=== PATIENT | male | born 1985 | race Caucasian/White ===

== ENCOUNTER 2017-01-27 07:33 | Emergency (ER) | payer SELFPAY ==
[~2017-01-27] VITALS: Ht 167.6 cm; Wt 65.0 kg
[2017-01-27 07:34] VITALS: BP 147/72; PULSE 82; RESP 18; TEMP 97.7; O2SAT 100
[2017-01-27] MEDS ORDERED: ADDE30TA PO (07:48)
[2017-01-27 07:50] VITALS: RESP 16; O2SAT 100
[2017-01-27] MEDS ORDERED: SODIUM CHLOR 0.9% 1000 ML INJ 1,000 ML IV SCH (07:55)
--- NOTE | 2017-01-27 07:58 | PD ---
HPI Chief Complaint: Abdominal Pain Time Seen by Provider: 07:55 Travel History International Travel<30 days: No Contact w/Intl Traveler<30days: No Traveled to known affect area: No History of Present Illness HPI 32-year-old male with history of kidney stones, presents to the ER today with what he states is a 20 out of 10 pain in the left flank radiating down into the left lower abdomen and testicle area. He has been nauseous and vomited. He states it feels like his kidney stones. He has had dysuria and blood in the urine. He denies any fevers, diarrhea, or any other symptoms. He does not know any exacerbating alleviating factors. Modifying Factors: None Associated Signs & Symptoms: Left flank pain with radiation down to the left testicle Risk Factors: Kidney stone history PFSH Past Medical History Kidney Stones: Yes Past Surgical History Surgical History: No Previous Surgery Social History Alcohol Use: Yes Tobacco Use: Yes (/2 ppd) Substance Use: No Allergies-Medications (Allergen,Severity, Reaction): Coded Allergies: penicillin G (Verified Allergy, Severe, Hives, 01/27/17) Reported Meds & Prescriptions Reported Meds & Active Scripts Active Lortab (Hydrocodone-Acetaminophen) 5-325 Mg Tab 1-2 Tab PO Q6H PRN Motrin Ib (Ibuprofen) 200 Mg Tablet 600 Mg PO QID PRN Reported Adderall (Amphetamine-Dextroamphetamine) 30 Mg Tab 30 Mg PO BID Avoid late evening doses. Space doses at least 4 to 6 hours if more than once/day dosing. Review of Systems Except as stated in HPI: all other systems reviewed are Neg Physical Exam Narrative GENERAL: Well-developed young white male patient currently in moderate distress. Awake and oriented 3. SKIN: Focused skin assessment warm/dry. HEAD: Atraumatic. Normocephalic. EYES: Pupils equal and round. No scleral icterus. No injection or drainage. ENT: No nasal bleeding or discharge. Mucous membranes pink and moist. NECK: Trachea midline. No JVD. CARDIOVASCULAR: Regular rate and rhythm. No murmur appreciated. RESPIRATORY: No accessory muscle use. Clear to auscultation. Breath sounds equal bilaterally. GASTROINTESTINAL: Abdomen soft, non-tender, nondistended. Hepatic and splenic margins not palpable. BACK: No CVA tenderness. No rash. No point tenderness on palpation of the spine. GENITOURINARY: Patient deferred. MUSCULOSKELETAL: No obvious deformities. No clubbing. No cyanosis. No edema. NEUROLOGICAL: Awake and alert. No obvious cranial nerve deficits. Motor grossly within normal limits. Normal speech. PSYCHIATRIC: Appropriate mood and affect; insight and judgment normal. Data Data Last Documented VS Vital Signs Date Time Temp Pulse Resp B/P (MAP) Pulse Ox O2 Delivery O2 Flow Rate FiO2 01/27/17 07:50 16 100 Room Air 01/27/17 07:34 97.7 82 Orders Orders Complete Blood Count With Diff (01/27/17 07:55) Comprehensive Metabolic Panel (01/27/17 07:55) Lipase (01/27/17 07:55) Urinalysis - C+S If Indicated (01/27/17 07:55) Ct Abd/Pel W/O Iv Contrast (01/27/17 07:55) Iv Access Insert/Monitor (01/27/17 07:55) Ecg Monitoring (01/27/17 07:55) Oximetry (01/27/17 07:55) Ondansetron Inj (Zofran Inj) (01/27/17 08:00) Sodium Chlor 0.9% 1000 Ml Inj (Ns 1000 M (01/27/17 07:55) Sodium Chloride 0.9% Flush (Ns Flush) (01/27/17 08:00) Ketorolac Inj (Toradol Inj) (01/27/17 08:00) Labs Laboratory Tests Test 01/27/17 07:52 01/27/17 09:27 White Blood Count 17.6 TH/MM3 Red Blood Count 5.12 MIL/MM3 Hemoglobin 15.9 GM/DL Hematocrit 47.7 % Mean Corpuscular Volume 93.1 FL Mean Corpuscular Hemoglobin 31.1 PG Mean Corpuscular Hemoglobin Concent 33.4 % Red Cell Distribution Width 13.6 % Platelet Count 252 TH/MM3 Mean Platelet Volume 9.0 FL Neutrophils (%) (Auto) 85.2 % Lymphocytes (%) (Auto) 7.2 % Monocytes (%) (Auto) 7.1 % Eosinophils (%) (Auto) 0.1 % Basophils (%) (Auto) 0.4 % Neutrophils # (Auto) 15.0 TH/MM3 Lymphocytes # (Auto) 1.3 TH/MM3 Monocytes # (Auto) 1.2 TH/MM3 Eosinophils # (Auto) 0.0 TH/MM3 Basophils # (Auto) 0.1 TH/MM3 CBC Comment DIFF FINAL Differential Comment Blood Urea Nitrogen 11 MG/DL Creatinine 1.37 MG/DL Random Glucose 101 MG/DL Total Protein 7.2 GM/DL Albumin 4.3 GM/DL Calcium Level 9.4 MG/DL Alkaline Phosphatase 99 U/L Aspartate Amino Transf (AST/SGOT) 9 U/L Alanine Aminotransferase (ALT/SGPT) 20 U/L Total Bilirubin 0.8 MG/DL Sodium Level 140 MEQ/L Potassium Level 4.1 MEQ/L Chloride Level 107 MEQ/L Carbon Dioxide Level 27.0 MEQ/L Anion Gap 6 MEQ/L Estimat Glomerular Filtration Rate 61 ML/MIN Lipase 67 U/L [facility] Medical Decision Making Medical Screen Exam Complete: Yes Emergency Medical Condition: Yes Medical Record Reviewed: Yes Interpretation(s) Laboratory Tests Test 01/27/17 07:52 White Blood Count 17.6 TH/MM3 (4.0-11.0) Neutrophils (%) (Auto) 85.2 % (16.0-70.0) Lymphocytes (%) (Auto) 7.2 % (9.0-44.0) Neutrophils # (Auto) 15.0 TH/MM3 (1.8-7.7) Monocytes # (Auto) 1.2 TH/MM3 (0-0.9) Creatinine 1.37 MG/DL (0.60-1.30) Aspartate Amino Transf (AST/SGOT) 9 U/L (15-37) Estimat Glomerular Filtration Rate 61 ML/MIN (>89) Lipase 67 U/L (73-393) Differential Diagnosis Left flank pain and abdominal pains: Renal colic versus pyelonephritis versus muscular skeletal Narrative Course CAT scan shows a 3 mm stone at the left mid ureter. Symptoms are indicative of renal colic and my plan would be to give him symptomatic treatment. Return for any worsening in symptoms as necessary. The plan has discussed with the patient and he states understanding. Continue to strain urine, drink plenty of fluids, follow up with urology. Diagnosis Primary Impression: Renal colic on left side Med/Other Pt SpecificInfo: Prescription(s) given Scripts Hydrocodone-Acetaminophen (Lortab) 5-325 Mg Tab 1-2 TAB PO Q6H Y for PAIN GREATER THAN 6, #15 TAB 0 Refills Prov: Elizabeth Cote MD 01/27/17 Ibuprofen (Motrin Ib) 200 Mg Tablet 600 MG PO QID Y for PAIN SCALE 1 TO 10, #20 Prov: Elizabeth Cote MD 01/27/17 Disposition: 01 DISCHARGE HOME Condition: Stable Elizabeth Cote MD Jan 27, 2017 07:58
[2017-01-27] MEDS ORDERED: SODIUM CHLORIDE 0.9% FLUSH 10 ML FLUSH IV FLUSH PRN (08:00)
[2017-01-27] MEDS ORDERED: KETOROLAC TROMETHAMINE 30 MG/ML (IVP) VIAL IVP ONE (08:00)
[2017-01-27] MEDS ORDERED: ONDANSETRON HCL 4 MG/2 ML VIAL IVP ONE (08:00)
[2017-01-27 08:28] LABS: BASOPHIL # 0.1 TH/MM3 (0-0.2); BASOPHIL % 0.4 % (0.0-2.0); EOSINOPHIL % 0.1 % (0.0-4.0); HEMATOCRIT 47.7 % (39.0-51.0); HEMO FLAGS DIFF FINAL; LYMPH % 7.2 % (9.0-44.0); LYMPHOCYTE # 1.3 TH/MM3 (1.0-4.8); MEAN CELL VOLUME 93.1 FL (80.0-100.0); MEAN CORPUSCULAR HEMOGLOBIN 31.1 PG (27.0-34.0); MEAN CORPUSCULAR HGB CONC 33.4 % (32.0-36.0); MONO % 7.1 % (0.0-8.0); NEUT % 85.2 % (16.0-70.0); PLATELET COUNT 252 TH/MM3 (150-450); RED BLOOD COUNT 5.12 MIL/MM3 (4.50-5.90); RED CELL DISTRIBUTION WIDTH 13.6 % (11.6-17.2); WHITE BLOOD COUNT 17.6 TH/MM3 (4.0-11.0)
[2017-01-27 08:35] LABS: ALT (GPT) 20 U/L (12-78); ANION GAP 6 MEQ/L (5-15); AST (GOT) 9 U/L (15-37); BLOOD UREA NITROGEN 11 MG/DL (7-18); CHLORIDE 107 MEQ/L (98-107); GLOMERULAR FILTRATION RATE 61 ML/MIN (>89); POTASSIUM 4.1 MEQ/L (3.5-5.1); SODIUM (NA) 140 MEQ/L (136-145)
[2017-01-27 08:38] LABS: ALKALINE PHOSPHATASE 99 U/L (45-117); TOTAL BILIRUBIN ADULT 0.8 MG/DL (0.2-1.0)
[2017-01-27 09:30] VITALS: BP 97/68; PULSE 78; RESP 16; O2SAT 100
--- NOTE | 2017-01-27 10:00 | RADRPT ---
EXAM DATE/TIME: 01/27/2017 08:05 [facility] COMPARISON: No previous studies available for comparison. INDICATIONS : Left flank pain ORAL CONTRAST: No oral contrast ingested. RADIATION DOSE: 3.00 CTDIvol (mGy) MEDICAL HISTORY : Renal calculi. SURGICAL HISTORY : None. ENCOUNTER: Initial ACUITY: 1 day PAIN SCALE: 6/10 LOCATION: Left flank TECHNIQUE: Volumetric scanning of the abdomen and pelvis was performed. Using automated exposure control and ad justment of the mA and/or kV according to patient size, radiation dose was kept as low as reasonably achievable to obtain optimal diagnostic quality images. DICOM format image data is available electro nically for review and comparison. FINDINGS: Lung bases are clear. The portion of the liver and spleen identified are fee of focal defects. Panc reas, adrenals and kidneys are unremarkable. There are no renal stones identified. There is a 3m stone middle third left ureter with a hydronephrosis. There are no calcifications lexus g the expected course of the right ureter. Abdominal wall is intact. There is no retroperitoneal adenopathy. Pelvic contents are unremarkable. CONCLUSION: 3 mm stone middle third of the left ureter without hydronephrosis or obstruction. Milton Gutierrez MD FACR on January 27, 2017 at 9:10 Board Certified Radiologist. This report was verified electronically.
[2017-01-27] MEDS ORDERED: HYDR-3533 PO (10:44)
[2017-01-27] MEDS ORDERED: IBUP-1129 PO (10:44)
[2017-01-27 11:11] LABS: BACTERIA, URINE OCC /hpf; BLOOD, URINE LARGE (NEG); CALCIUM OXALATE CRYSTALS,URINE OCC /hpf; COMMENT (UR) CULT NOT INDICATED; CULTURE IF INDICATED CULT NOT INDICATED; GLUCOSE,URINE NEG (NEG); HYALINE CAST, URINE 9 /lpf (RARE); KETONE, URINE 40 mg/dL (NEG); MUCUS URINE MANY /lpf (OCC); NITRITE,URINE NEG (NEG); PH, URINE 5.5 (5.0-8.5)
[2017-01-27 11:12] LABS: URINE COLOR BROWN (YELLW/STRAW)
[2017-01-27 11:20] VITALS: BP 108/74
== END 2017-01-27 11:22 | disposition home or self-care (01) ==
LOC: NEPE 07:33
DX: N20.1 Calculus of ureter (principal)
CPT/HCPCS: 74176; 80053; 81001; 83690; 85025; 96374; 96375; 99285; J1885; J2405; J7030